=== PATIENT | male | born 1960 | race Caucasian/White ===

== ENCOUNTER 2021-09-06 11:11 | Emergency (ER) | payer OTHER ==
[~2021-09-06] VITALS: Ht 170.2 cm; Wt 86.0 kg
[2021-09-06 11:20] VITALS: BP 140/91
[2021-09-06] MEDS ORDERED: cefTRIAXone IM 1 GM VIAL IM ONE (11:45)
--- NOTE | 2021-09-06 12:16 | PHYS DOC ---
Past Medical History Past Surgical History: No Surgical History General Adult EDM: Chief Complaint: INSECT BITE HPI: HPI: Patient is a 61-year-old male who presents with itching in his left groin area. Was bit by a tick last week and was placed on doxycycline. He has been scratching the area. Now noticed it to be very red and itchy. Has been also applying topical steroid cream. He is here today because the redness is getting worse. No history of smoking or diabetes. No history of wound healing issues. No other significant past medical history. Denies any arthralgias vision changes or overall fatigue Review of Systems: Review of Systems: Constitutional: Denies fever or chills. [] Eyes: Denies change in visual acuity. [] HENT: Denies nasal congestion or sore throat. [] Respiratory: Denies cough or shortness of breath. [] Cardiovascular: Denies chest pain or edema. [] GI: Denies abdominal pain, nausea, vomiting, bloody stools or diarrhea. [] : Denies dysuria. [] Musculoskeletal: Denies back pain or joint pain. [] Integument: Rash on left groin area Neurologic: Denies headache, focal weakness or sensory changes. [] Endocrine: Denies polyuria or polydipsia. [] Lymphatic: Denies swollen glands. [] Psychiatric: Denies depression or anxiety. [] Heart Score: C/O Chest Pain: No Risk Factors: Risk Factors: DM, Current or recent (<one month) smoker, HTN, HLP, family history of CAD, obesity. Risk Scores: Score 0 - 3: 2.5% MACE over next 6 weeks - Discharge Home Score 4 - 6: 20.3% MACE over next 6 weeks - Admit for Clinical Observation Score 7 - 10: 72.7% MACE over next 6 weeks - Early Invasive Strategies Current Medications: Current Medications Medications (Trade) Dose Ordered Sig/Loree Start Time Stop Time Status Last Admin Dose Admin Ceftriaxone Sodium (Rocephin Im) 1 gm 1X ONCE 09/06/21 11:45 09/06/21 11:51 DC Allergies: Allergies: Allergies Coded Allergies Type Severity Reaction Last Updated Verified No Known Drug Allergies 09/27/14 No Physical Exam: PE: Constitutional: Well developed, well nourished, no acute distress, non-toxic appearance. [] HENT: Normocephalic, atraumatic, bilateral external ears normal, oropharynx moist, no oral exudates, nose normal. [] Eyes: PERRLA, EOMI, conjunctiva normal, no discharge. [] Neck: Normal range of motion, no tenderness, supple, no stridor. [] Cardiovascular:Heart rate regular rhythm, no murmur [] Lungs & Thorax: Bilateral breath sounds clear to auscultation [] Abdomen: Bowel sounds normal, soft, no tenderness, no masses, no pulsatile masses. [] Skin: Left inguinal fold superior inferiorly shows overlying erythema with surrounding induration and 2 central punctate rudolph where he pulled off the 2 ticks. There is significant induration without any obvious fluctuance Back: No tenderness, no CVA tenderness. [] Extremities: No tenderness, no cyanosis, no clubbing, ROM intact, no edema. [] Neurologic: Alert and oriented X 3, normal motor function, normal sensory function, no focal deficits noted. [] Psychologic: Affect normal, judgement normal, mood normal. [] Current Patient Data: Vital Signs: Vital Signs Date Time Temp Pulse Resp B/P (MAP) Pulse Ox O2 Delivery O2 Flow Rate FiO2 09/06/21 11:20 98.1 78 18 140/91 (107) 96 Room Air 98.1 EKG: EKG: [] Radiology/Procedures: Radiology/Procedures: [] Course & Med Decision Making: Course & Med Decision Making I was concerned about this patient given his presentation. I suspect that he has a superimposed infection secondary to scratching the skin. He is already on doxycycline therefore I will add further antibiotics to increase coverage. Watson Disclaimer: Watson Disclaimer: This electronic medical record was generated, in whole or in part, using a voice recognition dictation system. Departure Departure Impression: Primary Impression: Cellulitis Additional Impression: Tick bite Disposition: HOME / SELF CARE / HOMELESS Condition: STABLE Referrals: JOY MOORE MD (PCP) Patient Instructions: Cellulitis, [id number] MARYJO MORALES MD September 06, 2021 12:16
[2021-09-06] MEDS ORDERED: SULF1TAB24 PO (12:26)
== END 2021-09-06 12:30 | disposition home or self-care (01) ==
LOC: ER 11:11
DX: S30.861A Insect bite (nonvenomous) of abdominal wall, initial encounter (principal); L03.314 Cellulitis of groin; W57.XXXA Bitten or stung by nonvenomous insect and other nonvenomous arthropods, initial encounter; Y93.89 Activity, other specified; Y92.89 Other specified places as the place of occurrence of the external cause; Y99.8 Other external cause status
CPT/HCPCS: 96372; 99283; J0696